=== PATIENT | male | born 1995 | race Caucasian/White ===

== ENCOUNTER 2024-12-30 09:22 | Emergency (ER) | payer BC, SELFPAY ==
[2024-12-30 09:23] VITALS: BMI 32.3
[2024-12-30 09:29] VITALS: BP 130/90; PULSE 88; RESP 18; TEMP 37.4; O2SAT 97; BMI 32.3
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
== END 2024-12-30 12:03 | disposition home or self-care (01) ==
PROVIDERS: Emergency Provider Emergency Medicine; PCP Family Medicine
DX: S13.4XXA Sprain of ligaments of cervical spine, initial encounter (principal); V49.9XXA Car occupant (driver) (passenger) injured in unspecified traffic accident, initial encounter; M54.50 Low back pain, unspecified; R07.9 Chest pain, unspecified; R51.9 Headache, unspecified
CPT/HCPCS: 70450; 71046; 72125; 99284